=== PATIENT | female | born 1980 | race Caucasian/White ===

== ENCOUNTER 2018-09-09 13:12 | Emergency (ER) | payer MEDICAID ==
[~2018-09-09] VITALS: Ht 149.9 cm; Wt 49.9 kg
[2018-09-09 13:36] VITALS: BP 118/79
[2018-09-09 13:57] LABS: Basophils # (auto) 0 uL; Basophils % (auto) 0.6 % (0.0-2.0); Eosinophils # (auto) 0.2 uL; Eosinophils % (auto) 2.2 % (0.0-7.0); Hematocrit 48.3 % (36.0-46.0); Hemoglobin 16.4 g/dL (12.2-16.2); Lymphocytes % (auto) 27.6 % (10.0-50.0); Mean Corpuscular Hemoglobin 31.4 pg (28.0-32.0); Mean Corpuscular Hgb Conc. 33.9 g/dL (32.0-36.0); Mean Corpuscular Volume 92.7 fL (80.0-100.0); Monocytes # (auto) 0.5 uL; Monocytes % (auto) 7.6 % (0.0-12.0); Neutrophils # (auto) 4.4 uL; Platelet Count (auto) 236 10^3/uL (140-450); Red Blood Cells 5.21 10^6/uL (4.0-5.20); Red Cell Distribution Width 15.1 % (11.8-14.3); White Blood Cell 7.1 10^3/uL (4.4-10.8)
[2018-09-09 14:11] LABS: Albumin 4.1 g/dL (3.4-5.0); BUN/Creatinine Ratio 12.8; Calcium 8.8 mg/dL (8.5-10.1); Potassium 4.1 mmol/L (3.5-5.1)
[2018-09-09 14:13] LABS: Bilirubin, Total 0.6 mg/dL (0.2-1.0)
[2018-09-09 14:19] LABS: Urine Bacteria MANY /hpf (None Seen); Urine Blood Negative /uL (Negative); Urine Mucus FEW (None Seen); Urine Specific Gravity 1.017 (1.001-1.035); Urine WBC 36 /hpf (0 - 5)
[2018-09-09] MEDS ORDERED: cefTRIAXone SOD 1,000 MG VL IM ONE (14:30)
== END 2018-09-09 14:49 | disposition home or self-care (01) ==
LOC: ER 13:14
DX: N34.2 Other urethritis (principal); B96.89 Other specified bacterial agents as the cause of diseases classified elsewhere; J45.909 Unspecified asthma, uncomplicated; F17.210 Nicotine dependence, cigarettes, uncomplicated; F12.10 Cannabis abuse, uncomplicated; Z32.02 Encounter for pregnancy test, result negative
CPT/HCPCS: 36415; 80053; 81001; 81025; 85025; 96372; 99283; J0696

== ENCOUNTER 2020-06-07 12:08 | Emergency (ER) | payer MEDICAID ==
[~2020-06-07] VITALS: Ht 149.9 cm; Wt 54.4 kg
[2020-06-07] MEDS ORDERED: cefTRIAXone SOD 1,000 MG VL IM ONE (14:45)
[2020-06-07 15:13] VITALS: BP 124/74
== END 2020-06-07 15:15 | disposition home or self-care (01) ==
LOC: ER 12:08
DX: J03.90 Acute tonsillitis, unspecified (principal); I88.9 Nonspecific lymphadenitis, unspecified; J45.909 Unspecified asthma, uncomplicated
CPT/HCPCS: 96372; 99283; J0696